=== PATIENT | male | born 1955 | race Caucasian/White ===

== ENCOUNTER 2018-01-27 14:22 | Emergency (ER) | payer SELFPAY ==
--- NOTE | 2018-01-27 15:20 | ER Document Report ---
ED Medical Screen (RME) - General Chief Complaint: Arm Pain Stated Complaint: RIGHT ARM PAIN Time Seen by Provider: 01/27/18 15:04 Mode of Arrival: Ambulatory Information source: Patient Notes: 62-year-old male history of A. acosta who had IV placed in his right upper extremity noted some streaking which has improved but the pain is worsening. Patient sent in to emergency department for concerns of DVT I have greeted and performed a rapid initial assessment of this patient. A comprehensive ED assessment and evaluation of the patient, analysis of test results and completion of the medical decision making process will be conducted by additional ED providers. PHYSICAL EXAMINATION: GENERAL: Well-appearing, well-nourished and in no acute distress. HEAD: Atraumatic, normocephalic. EYES: Pupils equal round extraocular movements intact, conjunctiva are normal. ENT: Nares patent NECK: Normal range of motion LUNGS: No respiratory distress Musculoskeletal: Normal range of motion NEUROLOGICAL: Normal speech, normal gait. PSYCH: Normal mood, normal affect. SKIN: Warm, Dry, normal turgor, no rashes or lesions noted. - Related Data Allergies/Adverse Reactions: amoxicillin [From Augmentin] Allergy (Verified 01/27/18 14:24) clavulanic acid [From Augmentin] Allergy (Verified 01/27/18 14:24) levofloxacin [From Levaquin] Allergy (Verified 01/27/18 14:24) Past Medical History - Social History Chew tobacco use (# tins/day): No Frequency of alcohol use: Occasional Drug Abuse: None - Past Medical History Cardiac Medical History: Reports: Hx Atrial Fibrillation, Hx Hypertension Renal/ Medical History: Denies: Hx Peritoneal Dialysis GI Medical History: Reports: Hx Gastroesophageal Reflux Disease Musculoskeltal Medical History: Reports Hx Arthritis Past Surgical History: Reports: Hx Appendectomy Physical Exam - Vital signs Vitals: Temp Pulse Resp BP Pulse Ox 98.6 F 84 17 147/72 H 98 01/27/18 14:26 01/27/18 14:01/27/18 14:01/27/18 14:01/27/18 14:26 Course - Vital Signs Vital signs: Temp Pulse Resp BP Pulse Ox 98.6 F 84 18 147/72 H 98 01/27/18 14:26 01/27/18 14:01/27/18 15:03 01/27/18 14:26 01/27/18 14:26
--- NOTE | 2018-01-27 15:58 | ER Document Report ---
HPI - HPI Patient complains to provider of: Right arm pain Onset: Last week Onset/Duration: Gradual Quality of pain: Achy Pain Level: 2 Context: Patient states that he was recently discharged a week ago from a different facility. Patient states that he had needle sticks to the right arm during his hospitalization. Patient states that he has tenderness to the right antecubital area that extends to the upper arm that started gradually for the past week. Patient complains of some areas of bruising. Patient denies any new injury. Patient denies any fever. Patient without any chest pain or dyspnea symptoms. Patient states that he had been admitted for elevated blood pressure and heart rate. Associated Symptoms: Other - Right arm pain. denies: Chest pain, Nonproductive cough, Productive cough Exacerbated by: Denies Relieved by: Denies Similar symptoms previously: No Recently seen / treated by doctor: Yes - ROS ROS below otherwise negative: Yes Systems Reviewed and Negative: Yes All other systems reviewed and negative - CONSTITUTIONAL Constitutional: DENIES: Fever - NEURO Neurology: DENIES: Weakness - CARDIOVASCULAR Cardiovascular: DENIES: Chest pain - RESPIRATORY Respiratory: DENIES: Trouble Breathing, Coughing - GASTROINTESTINAL Gastrointestinal: DENIES: Abdominal Pain, Nausea, Patient vomiting - MUSCULOSKELETAL Musculoskeletal: REPORTS: Extremity pain. DENIES: Back Pain - DERM Skin Color: Ecchymosis Skin Problems: None Past Medical History - General Information source: Patient - Social History Smoking Status: Former Smoker Chew tobacco use (# tins/day): No Frequency of alcohol use: Occasional Drug Abuse: None Family History: Reviewed & Not Pertinent Patient has suicidal ideation: No Patient has homicidal ideation: No - Past Medical History Cardiac Medical History: Reports: Hx Atrial Fibrillation, Hx Hypertension Renal/ Medical History: Denies: Hx Peritoneal Dialysis GI Medical History: Reports: Hx Gastroesophageal Reflux Disease Musculoskeltal Medical History: Reports Hx Arthritis Psychiatric Medical History: Reports: Hx Anxiety Past Surgical History: Reports: Hx Appendectomy Vertical Provider Document - CONSTITUTIONAL Agree With Documented VS: Yes Exam Limitations: No Limitations General Appearance: WD/WN, No Apparent Distress - HEENT HEENT: Atraumatic, Normocephalic - NECK Neck: Normal Inspection, Supple - RESPIRATORY Respiratory: Breath Sounds Normal, No Respiratory Distress - CARDIOVASCULAR Cardiovascular: Regular Rate, Regular Rhythm Pulses: Normal: Radial - BACK Back: Normal Inspection - MUSCULOSKELETAL/EXTREMETIES Musculoskeletal/Extremeties: MAEW, FROM, Tender - Right upper extremity tenderness, No Edema - NEURO Level of Consciousness: Awake, Alert, Appropriate Motor/Sensory: No Motor Deficit - DERM Integumentary: Warm, Dry Notes: Faint ecchymotic area to right antecubital area and medial aspect of proximal third of right upper arm Course - Re-evaluation Re-evalutation: 01/27/18 15:58 Doppler coal gasification technician to bedside for study 01/27/18 Patient's Doppler without any evidence concerning for DVT. Patient with good peripheral pulse, no vascular compromise. Patient with normal skin temperature. Very faint old appearing area of ecchymosis to medial right upper arm. Patient encouraged to apply warm compresses to help manage his discomfort symptoms. - Vital Signs Vital signs: Temp Pulse Resp BP Pulse Ox 98.6 F 84 18 147/72 H 98 01/27/18 14:26 01/27/18 14:26 01/27/18 15:03 01/27/18 14:26 01/27/18 14:26 - Diagnostic Test Radiology reviewed: Reports reviewed Discharge - Discharge Clinical Impression: Right arm pain, Phlebitis Condition: Stable Disposition: HOME, SELF-CARE Instructions: Superficial Phlebitis ([facility]), Warm Packs ([facility]) Additional Instructions: Return immediately for any new or worsening symptoms Followup with your primary care provider, call tomorrow to make a followup appointment Apply warm compresses to area
--- NOTE | 2018-01-27 16:47 | RADIOLOGY REPORT (SQ) ---
EXAM DESCRIPTION: VENOUS UNILATERAL UPPER COMPLETED DATE/TIME: 01/27/2018 4:39 pm REASON FOR STUDY: RUE SWELLING COMPARISON: None. TECHNIQUE: Dynamic and static diaz scale and color images acquired of the right arm venous system. S elected spectral images acquired with additional compression and augmentation maneuvers. The contrala teral subclavian vein and internal jugular vein were also imaged. Images stored on PACS. LIMITATIONS: None. FINDINGS: INTERNAL JUGULAR VEIN: Normal phasicity, compression, augmentation. No visualized echogeni c material on diaz scale. No defects on color images. Comparison opposite side normal. SUBCLAVIAN VEIN: Normal compression, augmentation. No visualized echogenic material on diaz scale. No defects on color images. AXILLARY VEIN: Normal compression, augmentation. No visualized echogenic material on diaz scale. No d efects on color images. BRACHIAL VEIN: Normal compression, augmentation. No visualized echogenic material on diaz scale. No d efects on color images. BASILIC VEIN: Normal compression, augmentation. No visualized echogenic material on diaz scale. No de fects on color images. CEPHALIC VEIN: Normal compression, augmentation. No visualized echogenic material on diaz scale. No d efects on color images. OTHER: No other significant finding. CONTRALATERAL SUBCLAVIAN VEIN AND INTERNAL JUGULAR VEIN: Normal phasicity, compression and augmentation. No visualized echogenic material on diaz scale. No de fects on color images. IMPRESSION: NO EVIDENCE DVT OR SVT IN THE RIGHT ARM. TECHNICAL DOCUMENTATION: JOB ID: [id number] [employer]- All Rights Reserved Reading location - IP/workstation name: [email or web address]
[2018-01-27 17:32] VITALS: BP 129/93
== END 2018-01-27 17:31 | disposition home or self-care (01) ==
LOC: ER 14:22
DX: I80.9 Phlebitis and thrombophlebitis of unspecified site (principal); M79.601 Pain in right arm; Z87.891 Personal history of nicotine dependence; I10 Essential (primary) hypertension
CPT/HCPCS: 93971; 99284